=== PATIENT | female | born 1960 | race Caucasian/White ===

== ENCOUNTER 2016-09-18 11:38 | Emergency (ER) | payer OTHER ==
--- NOTE | 2016-09-18 12:07 | ERPHSYRPT ---
- History of Present Illness Time Seen by Provider: 09/18/16 11:49 Source: patient Physician History: CC: earings Hx: 55 y/o patient drove here form [place]. She was going to residential to visit her boyfriend. She has ear piercings so could not wear them in. She can not get them out so came to ER. She has special Dathe ear piercings. No other complaints. No problems. Allergies/Adverse Reactions: latex Allergy (Verified 09/18/16 11:49) Penicillins Allergy (Verified 09/18/16 11:49) - Physical Exam General Appearance: alert Neurologic Exam: alert, oriented x 3, cooperative Skin Exam: warm, dry Comments: She has curved ear piercings in place. They are firmly seated on both ends. No sign of infection. - Progress Progress Note: 09/18/16 11:58 Explained to patient that she needs to go to an ear ring parlor which has the special tool needed to take these out. She does not have a medical emergency. Will release with instructions. 09/18/16 12:09 Pt wanted ear rings removed. [employer] and nurse used hemastats to removed round backing and remove. Counseled pt/family regarding: diagnosis, need for follow-up - Departure Time of Disposition: 11:59 Departure Disposition: Home Clinical Impression: Encounter for medical screening examination Condition: Stable Critical Care Time: No Instructions: Removal of Foreign Body From Ear Additional Instructions: Follow up with your ear ring provider. Keep clean and dry. Report any sign of infection right away.
[2016-09-18 12:11] VITALS: PULSE 92; O2SAT 97
== END 2016-09-18 12:18 | disposition home or self-care (01) ==
LOC: ED 11:38
DX: Z04.8 Encounter for examination and observation for other specified reasons (principal)
CPT/HCPCS: 99281